=== PATIENT | female | born 2000 | race Two or more races ===

== ENCOUNTER 2020-05-23 09:47 | Emergency (ER) | payer OTHER ==
[2020-05-23 09:59] VITALS: BP 110/60
[2020-05-23] MEDS ORDERED: KETOROLAC TROMETHAMINE 60 MG/2 ML SDV IM ONE (10:41)
--- NOTE | 2020-05-23 10:42 | ER Document Report ---
ED Neck/Back Problem - General Chief Complaint: Low Back Pain Stated Complaint: LOWER BACK PAIN Time Seen by Provider: 05/23/20 10:41 Notes: CHIEF COMPLAINT: Right lower back pain since last night HPI: 20-year-old female presenting with pain in the right lower back with radiation through the gluteus and the lateral thigh with some numbness and tingling since last night. No perineal numbness. No incontinence of urine or bowel. No dysuria fever nausea or vomiting. Pain is worse with sitting or walking. Had similar discomfort about a year ago. Try to get into her primary care provider was told she would need appointment. Did not take any medications for her symptoms ROS: See HPI - all other systems were reviewed and are otherwise negative Constitutional: no fever GI: no vomiting, no diarrhea, no abdominal pain : no dysuria Integumentary: no rash Allergy: no hives Musculoskeletal: + extremity pain or swelling Neurological: + numbness/tingling, no weakness MEDICATIONS: I agree with the patient medications as charted by the RN. ALLERGIES: I agree with the allergies as charted by the RN. PAST MEDICAL HISTORY/PAST SURGICAL HISTORY: Reviewed and agree as charted by RN. SOCIAL HISTORY: Reviewed and agree as charted by RN. FAMILY HISTORY: No significant familial comorbid conditions directly related to patient complaint EXAM: Reviewed vital signs as charted by RN. CONSTITUTIONAL: Alert and oriented and responds appropriately to questions. Well-appearing; well-nourished HEAD: Normocephalic; atraumatic EYES: Conjunctivae clear, sclerae non-icteric ENT: normal nose; no rhinorrhea; moist mucous membranes NECK: Supple without meningismus CARD: RRR; no murmurs, no clicks, no rubs, no gallops; symmetric distal pulses RESP: Normal chest excursion without splinting or tachypnea; breath sounds clear and equal bilaterally; no wheezes, no rhonchi, no rales, pulse oximetry 98% on room air not hypoxic ABD/GI: Normal bowel sounds; non-distended; soft, non-tender, no rebound, no guarding; no palpable organomegaly or masses. BACK: The back appears normal and is non-tender to palpation directly over the thoracic and lumbar spine. There is mild tenderness in the right lower lateral lumbar musculature into the right upper gluteal region, there is no CVA tenderness EXT: Normal ROM in all joints; non-tender to palpation; no cyanosis, no effusions, no edema SKIN: Normal color for age and race; warm; dry; good turgor; no acute lesions noted NEURO: Moves all extremities equally; Motor and sensory function intact. Strength equal 5/5 bilateral lower extremities. Sensation intact and equal bilateral lower extremities. Straight leg raise is negative. No saddle anesthesia on exam. DTRs 2+ intact and equal bilateral lower extremities. PSYCH: The patient's mood and manner are appropriate. Grooming and personal hygiene are appropriate. MDM: 20-year-old female with symptoms of sciatica since last night. Will give Toradol in the emergency department place patient on anti-inflammatories and steroids refer to orthopedics follow-up - Related Data Allergies/Adverse Reactions: No Known Allergies Allergy (Unverified 05/23/20 10:38) Past Medical History - Social History Smoking Status: Unknown if Ever Smoked Family History: Reviewed & Not Pertinent Physical Exam - Vital signs Vitals: Temp Pulse Resp BP Pulse Ox 98.1 F 65 16 110/60 99 05/23/20 09:57 05/23/20 09:57 05/23/20 09:57 05/23/20 09:57 05/23/20 09:57 Course - Vital Signs Vital signs: Temp Pulse Resp BP Pulse Ox 98.1 F 65 16 110/60 99 05/23/20 09:57 05/23/20 09:57 05/23/20 09:57 05/23/20 09:57 05/23/20 09:57 - Laboratory Results Critical Laboratory Results Reviewed: No Critical Results - Radiology Results Critical Radiology Results Reviewed: No Critical Results Discharge - Discharge Clinical Impression: Sciatica, right side Condition: Stable Disposition: HOME, SELF-CARE Additional Instructions: 1. Warm heat to the lower back twice daily 2. no heavy lifting for 2-3 days 3. medications as prescribed 4. follow up with orthopedics for further evaluation and treatment as needed for any continuing pain or problems, call for appt. 5. return to the ER for any onset of incontinence of urine, fever > 101 or worsening condition Prescriptions: Prednisone [Deltasone 20 mg Tablet] 2 tab PO DAILY 5 Days #10 tablet Diclofenac Sodium [Voltaren 50 Mg Tablet.] 50 mg PO BID #20 tablet. Referrals: WERTMAN,CELIA, DO [ACTIVE STAFF] - Follow up as needed
== END 2020-05-23 11:03 | disposition home or self-care (01) ==
LOC: ER 09:47
DX: M54.41 Lumbago with sciatica, right side (principal)
CPT/HCPCS: 99284; J1885